=== PATIENT | female | born 1995 | race Caucasian/White ===

== ENCOUNTER 2021-03-13 21:44 | Emergency (ER) | payer OTHER ==
[2021-03-13 22:14] LABS: BASOPHIL 0.8 % (0-2); EOSINOPHIL 9.2 % (0-5); HCT 40.9 % (37.0-47.0); HGB 13.7 g/dl (12.5-16.0); LYMPHOCYTE 14.6 % (15-48); MCH 28.6 pg (25.0-31.0); MCHC 33.5 g/dL (32.0-36.0); MCV 85.4 fL (78.0-100.0); MONOCYTE 7.4 % (0-12); MPV 8.7 fL (6.0-9.5); NEUTROPHIL 67.5 % (41-80); NRBC 0; PLT 249 K/uL (150-400); RBC 4.79 M/uL (4.20-5.40); RDW 12.5 % (11.5-14.0); WBC 13.1 K/uL (4.0-10.5)
[2021-03-13 22:27] LABS: CREATININE 0.75 mg/dL (0.51-0.95); POTASSIUM 3.6 mmol/L (3.5-5.1)
[2021-03-13 22:58] LABS: CORONAVIRUS 2019 SARS-COV-2 NEGATIVE (NEGATIVE); INFLUENZA A NAA NEGATIVE (NEGATIVE)
[2021-03-13] MEDS ORDERED: PREDNISONE 20MG20 MG PO (23:23)
== END 2021-03-13 23:38 | disposition home or self-care (01) ==
LOC: FER 21:44
PROVIDERS: Emergency Medicine
DX: J45.909 Unspecified asthma, uncomplicated (principal); Z20.822 Contact with and (suspected) exposure to COVID-19
CPT/HCPCS: 36415; 71045; 80048; 85025; 87880; 94640; 94664; J2930; J7040; U0002